=== PATIENT | female | born 1990 | race Caucasian/White ===

== ENCOUNTER 2024-06-03 11:00 | Emergency (ER) | payer MEDICARE, OTHER ==
[~2024-06-03] VITALS: Ht 167.6 cm; Wt 106.2 kg
[2024-06-03 12:10] LABS: BASO % 0.2 % (0.0-1.0); EOS % 0.1 % (0.0-3.0); HEMATOCRIT 36.2 % (36.0-47.0); HEMOGLOBIN 12.1 g/dl (12.0-15.5); LYMPH # 2.2 10^3/uL (1.5-5.0); LYMPH % 20.1 % (24.0-44.0); MEAN CORPUSCULAR HEMOGLOBIN 30.3 pg (27.0-33.0); MEAN CORPUSCULAR HGB CONC 33.4 g/dl (32.0-36.5); MEAN CORPUSCULAR VOLUME 90.7 fl (80.0-96.0); MONO # 1.1 10^3/uL (0.0-0.8); MONO % 9.9 % (2.0-8.0); NEUTROPHILS # 7.7 10^3/uL (1.5-8.5); NEUTROPHILS % 69.2 % (36.0-66.0); PLATELET COUNT, AUTOMATED 186 10^3/uL (150-450); RED BLOOD COUNT 3.99 10^6/uL (4.00-5.40); WHITE BLOOD COUNT 11.1 10^3/uL (4.0-10.0)
[2024-06-03 12:18] LABS: KETONE, URINE AUTO RFX NEGATIVE (NEGATIVE); MUCUS, URINE RFX SMALL (NEGATIVE); NITRITE, URINE AUTO RFX NEGATIVE (NEGATIVE); RBC, URINE AUTO RFX 168 /HPF (0-3); SQUAM EPITHELIAL CELL UR AURFX 8 /HPF (0-6)
[2024-06-03 12:25] LABS: LEUKOCYTE ESTERASE UR AUTO RFX 3+ (NEGATIVE); WBC, URINE AUTO RFX TNTC /HPF (0-3)
[2024-06-03 12:32] LABS: BLOOD UREA NITROGEN 14 MG/DL (9-23); CALCIUM LEVEL 8.1 MG/DL (8.5-10.1); CARBON DIOXIDE LEVEL 28 MMOL/L (20-31); CHLORIDE LEVEL 104 MMOL/L (98-107); GLOMERULAR FILTRATION RATE > 60.0 (>60); GLUCOSE, FASTING 120 MG/DL (60-100); SODIUM LEVEL 143 MMOL/L (136-145)
[2024-06-03] MEDS: ACETAMINOPHEN 325 MG TAB PO ONE (14:30)
[2024-06-03] MEDS: POTASSIUM CHLORIDE 10MEQ SR TABLET PO ONE (17:01)
[2024-06-03] MEDS: IPRATROPIUM 0.5MG/ALBUTEROL 2.5MG INH SOL UD 3ML (DUONEB) NEB ONE (17:30)
[2024-06-03] MEDS: KETOROLAC 30 MG/ML 1ML VIAL IV ONE (18:25)
[2024-06-03] MEDS: KETOROLAC 30 MG/ML 1ML VIAL IM ONE (18:50)
[2024-06-03] MEDS: ACETAMINOPHEN 500 MG TAB PO ONE (18:50)
[2024-06-03 19:50] VITALS: BP 137/67; O2SAT 94
[2024-06-03] MEDS ORDERED: IBUP-1022 PO (20:21)
[2024-06-03] MEDS ORDERED: CEFD300C PO (20:21)
[2024-06-03 20:35] VITALS: TEMP 100
== END 2024-06-03 20:36 | disposition home or self-care (01) ==
LOC: M ED 11:00
DX: N20.0 Calculus of kidney (principal); J09.X2 Influenza due to identified novel influenza A virus with other respiratory manifestations; R06.2 Wheezing; I31.39 Other pericardial effusion (noninflammatory); N39.0 Urinary tract infection, site not specified; J44.9 Chronic obstructive pulmonary disease, unspecified; K21.9 Gastro-esophageal reflux disease without esophagitis; F31.9 Bipolar disorder, unspecified; F43.10 Post-traumatic stress disorder, unspecified; F17.210 Nicotine dependence, cigarettes, uncomplicated; Z91.013 Allergy to seafood; Z91.040 Latex allergy status; Z91.011 Allergy to milk products; Z79.1 Long term (current) use of non-steroidal anti-inflammatories (NSAID); Z79.2 Long term (current) use of antibiotics
CPT/HCPCS: 71045; 74176; 76830; 76856; 80048; 81001; 85025; 87088; 87186; 87486; 87581; 87633; 87798; 93005; 93976; 94640; 96372; 99284; J1885